=== PATIENT | female | born 1960 | race Caucasian/White ===

== ENCOUNTER → 2016-08-21 | Outpatient (REF) | payer BC | LOC: M LAB REF 16:43 | PROVIDERS: ATTEND Surgery | DX: C44.519 Basal cell carcinoma of skin of other part of trunk (principal) ==

== ENCOUNTER → 2018-09-02 | Outpatient (REF) | payer BC ==
[2018-09-02 19:40] LABS: C REACTIVE PROTEIN QUANTITATIV < 0.30 MG/DL (0.00-0.30); URIC ACID 5.3 MG/DL (2.6-6.0)
[2018-09-05 00:07] LABS: Lyme Disease IgG/IgM Antibodie <0.91 ISR (0.00-0.90); Lyme Disease IgM Ab Quantitati <0.80 index (0.00-0.79)
== END ==
LOC: M LAB REF 17:37
PROVIDERS: ATTEND Internal Medicine
DX: M25.571 Pain in right ankle and joints of right foot (principal); M25.562 Pain in left knee

== ENCOUNTER 2019-01-06 07:54 | Day surgery (SDC) | payer BC ==
[~2019-01-06] VITALS: Ht 161.3 cm; Wt 88.5 kg
[~2019-01-06 07:54] MED LIST: ACCU40TA PO; ALRE0.5S OU; ASPI81TA85 PO; CALCCAP4 PO; CETI10CH PO; ESTR625TA PO; HYDR12CA PO; MAGN400C2 PO; MOME50SP; MULTCAP PO; NS 1,000 ML IV ONE; OMEP40CA2 PO; ROSU10TA5 PO; SM P99TA PO; [UNRECOGNIZED DRUG - OTHER] PO
[2019-01-06] MEDS ORDERED: LIDOCAINE 2% INJ 100 MG/5 ML SDV (FOR ANES.) As Ordered ONE (09:08)
[2019-01-06] MEDS ORDERED: PROPOFOL 200 MG/20 ML VIAL As Ordered ONE (09:08)
--- NOTE | 2019-01-06 09:10 | ROOR ---
Patient Name: Kim Ross Procedure Date: 01/06/2019 8:54 AM Date of : 1960 Age: 58 Room: [facility] Gender: Female Note Status: Finalized Procedure: Upper Endoscopy + Biopsies Indications: Heartburn, Exclusion of Trujillo's esophagus Providers: Fredis Hutson MD Referring MD: Camila POWER MD Requesting Provider: Medicines: Monitored Anesthesia Care Complications: No immediate complications. Procedure: Pre-Anesthesia Assessment: - The heart rate, respiratory rate, oxygen saturations, blood pressure, adequacy of pulmonary ventilation, and response to care were monitored throughout the procedure. The Endoscope was introduced through the mouth, and advanced to the second part of duodenum. The upper GI endoscopy was accomplished without difficulty. The patient tolerated the procedure well. Findings: The Z-line was irregular and was found 35 cm from the incisors. Multiple biopsies were obtained with cold forceps for evaluation to rule out Trujillo's Esophagus randomly at the gastroesophageal junction. A small hiatal hernia was present. No other significant abnormalities were identified in a careful examination of the stomach. The exam of the duodenum was otherwise normal. Impression: - Z-line irregular, 35 cm from the incisors. - Small hiatal hernia. - Multiple biopsies were obtained at the gastroesophageal junction. - The examination was otherwise normal. Recommendation: - Patient has a contact number available for emergencies. The signs and symptoms of potential delayed complications were discussed with the patient. Return to normal activities tomorrow. Written discharge instructions were provided to the patient. - High fiber diet. - Discharge patient to home. - Continue present medications. - Follow an antireflux regimen. - Await pathology results. - Telephone GI clinic for pathology results in 1 week. - Check Portal Online for Path Results.([email or web address]) - Return to referring physician. - The findings and recommendations were discussed with the patient's family. Fredis Hutson MD Fredis Hutson MD 01/06/2019 9:10:05 AM Electronically signed by Fredis Hutson MD Number of Addenda: 0 Note Initiated On: 01/06/2019 8:54 AM Estimated Blood Loss: Estimated blood loss: none.
--- NOTE | 2019-01-06 09:28 | ROOR ---
Patient Name: Kim Ross Procedure Date: 01/06/2019 8:55 AM Date of : 1960 Age: 58 Room: [facility] Gender: Female Note Status: Finalized Procedure: Total Colonoscopy to Cecum Indications: Screening for colorectal malignant neoplasm Providers: Fredis Hutson MD Referring MD: Camila POWER MD Requesting Provider: Medicines: Monitored Anesthesia Care Complications: No immediate complications. Procedure: Pre-Anesthesia Assessment: - The heart rate, respiratory rate, oxygen saturations, blood pressure, adequacy of pulmonary ventilation, and response to care were monitored throughout the procedure. The Colonoscope was introduced through the anus and advanced to the cecum, identified by appendiceal orifice and ileocecal valve. The colonoscopy was performed without difficulty. The patient tolerated the procedure well. The quality of the bowel preparation was excellent. Findings: The perianal and digital rectal examinations were normal. Non-bleeding internal hemorrhoids were found during retroflexion. The hemorrhoids were small and Grade I (internal hemorrhoids that do not prolapse). Multiple small and large-mouthed diverticula were found in the recto-sigmoid colon, sigmoid colon and descending colon. The exam was otherwise without abnormality on direct and retroflexion views. Impression: - Non-bleeding internal hemorrhoids. - Diverticulosis in the recto-sigmoid colon, in the sigmoid colon and in the descending colon. - The examination was otherwise normal on direct and retroflexion views. - No specimens collected. - The exam was otherwise normal to the cecum. Recommendation: - Patient has a contact number available for emergencies. The signs and symptoms of potential delayed complications were discussed with the patient. Return to normal activities tomorrow. Written discharge instructions were provided to the patient. - High fiber diet. - Discharge patient to home. - Continue present medications. - Repeat colonoscopy in 10 years for screening purposes. - Return to referring physician. - The findings and recommendations were discussed with the patient's family. Fredis Hutson MD Fredis Hutson MD 01/06/2019 9:28:08 AM Electronically signed by Fredis Hutson MD Number of Addenda: 0 Note Initiated On: 01/06/2019 8:55 AM Estimated Blood Loss: Estimated blood loss: none.
[2019-01-06 09:53] VITALS: BP 148/80
== END 2019-01-06 09:55 | disposition home or self-care (01) ==
LOC: M OPP 07:54
PROVIDERS: ATTEND Internal Medicine Gastroenterology
DX: K64.0 First degree hemorrhoids (principal); K57.30 Diverticulosis of large intestine without perforation or abscess without bleeding; K22.8 Other specified diseases of esophagus; K44.9 Diaphragmatic hernia without obstruction or gangrene; R12 Heartburn; Z12.11 Encounter for screening for malignant neoplasm of colon

== ENCOUNTER → 2020-04-13 | Outpatient (REF) | payer BC ==
[~2020-04-13] MED LIST changes: -ASPI81TA85 PO; +ASPI81TA86 PO; -NS 1,000 ML IV ONE; -OMEP40CA2 PO; +OMEP40CA97 PO; -ROSU10TA5 PO; +ROSU10TA6 PO
[2020-04-13 15:29] LABS: HEPATITIS A ANTIBODY IGM NEGATIVE (NEGATIVE); HEPATITIS B CORE ANTIBODY IGM NEGATIVE (NEGATIVE); HEPATITIS B SURFACE ANTIGEN NEGATIVE (NEGATIVE); HEPATITIS C VIRUS ABY INDEX 0.1 INDEX (<0.8)
== END ==
LOC: M LAB REF 12:23
PROVIDERS: ATTEND Internal Medicine
DX: R94.5 Abnormal results of liver function studies (principal); K76.0 Fatty (change of) liver, not elsewhere classified

== ENCOUNTER → 2020-12-09 | Outpatient (CLI) | payer BC ==
--- NOTE | 2020-12-10 03:31 | REP ---
INDICATION: IMPINGEMENT SYNDROME. COMPARISON: None. TECHNIQUE: Internal rotation, external rotation, and Y-view of the right shoulder FINDINGS: Relatively mild cortical irregularity and spurring at the acromioclavicular joint. Glenohumeral joint is relatively age-appropriate. Subacromial space is normal. No periarticular calcifications or loose bodies are identified. Surrounding soft tissues are normal. 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 <Electronically signed by Marino Law > 12/10/20 [id number]
== END ==
LOC: M SOG 14:46
PROVIDERS: ATTEND Orthopaedic Surgery Sports Medicine
DX: M75.41 Impingement syndrome of right shoulder (principal)

== ENCOUNTER → 2020-12-30 | Outpatient (CLI) | payer BC ==
[~2020-12-30] MED LIST changes: +OMEP40CA4 PO; -OMEP40CA97 PO
--- NOTE | 2020-12-30 15:52 | REP ---
INDICATION: PAIN AND SWELLING COMPARISON: None. TECHNIQUE: AP, lateral, bilateral oblique views left wrist. FINDINGS: The carpal bones, surrounding osseous structures, soft tissues, and joint spaces are normal. There is no evidence for acute fracture or dislocation. No subcutaneous emphysema or radiodense foreign body. IMPRESSION: Normal age-appropriate left wrist series. No acute fracture or dislocation. <Electronically signed by Marino Law > 12/30/20 [id number]
== END ==
LOC: M WUC 15:27
PROVIDERS: ATTEND Internal Medicine
DX: M25.532 Pain in left wrist (principal)

== ENCOUNTER → 2021-02-03 | Outpatient (CLI) | payer BC ==
--- NOTE | 2021-02-03 14:53 | REP ---
INDICATION: RT SHOULDER PAIN, LT WRIST PAIN. COMPARISON: None. TECHNIQUE: Axial T1. Coronal fat suppressed proton density, fat suppressed T2, and T1 multi-gradient. Sagittal T2 and T2 STIR. FINDINGS: Mild linear T2 hyper signal changes are seen in the triangular fibrocartilage complex which appears to be intact. Linear hyper signal changes are seen in the scapholunate ligament. The lunatotriquetral ligament appears to be intact. There is no abnormal fluid seen in the distal radioulnar joint. The chondral surfaces appear smooth. Normal appearing low signal is seen throughout all imaged flexor and extensor tendons. No abnormal peritendinous fluid is identified. There is enlargement of the median nerve with increased T2 signal seen within it. There is no abnormal anterior bowing of the flexor retinaculum. The marrow signal is within normal limits throughout. There is no evidence of a mass or mass effect. IMPRESSION: 1. Signal changes in the scapholunate ligament as described above. Ligamentous integrity cannot be confirmed. Consider follow-up with wrist MRI arthrography if clinically relevant. 2. Evidence of median nerve enlargement with hyper signal changes as described above. This should be correlated clinically for possible median neuritis. 3. Other findings as described above. <Electronically signed by Lance Morgan > 02/03/21 [id number]
--- NOTE | 2021-02-03 16:04 | REP ---
INDICATION: RT SHOULDER PAIN, LT WRIST PAIN. COMPARISON: None. TECHNIQUE: Coronal oblique T1 and fat suppressed T2. Sagittal oblique fat suppressed T2. Axial zgjte-tiumjprf-saks and T2 FLASH. FINDINGS: There is moderate hypertrophic degenerative change seen involving the acromioclavicular joint. T2 hyper signal is seen within and on both sides of the joint. The acromion process is type 2 with a spur arising from the inferior surface at the AC joint. There is patchy and linear T2 hyper signal seen throughout the supraspinatus tendon some of which appears full-thickness. There is no susana supraspinatus musculotendinous retraction, however, there does appear to be mild supraspinatus muscle atrophy. Patchy T2 hyper signal is seen in the subscapularis and infraspinatus tendons. The biceps tendon resides within the bicipital groove. There is no glenohumeral joint effusion. There is no abnormal fluid seen in the subcoracoid recess. There is coracohumeral and coracoacromial ligamentous thickening. No gross labral signal changes are identified. IMPRESSION: 1. Supraspinatus tendinitis/tendinosis. Partial full-thickness tear cannot be ruled out. 2. Subscapularis and infraspinatus tendinitis/tendinosis which is somewhat mild. 3. AC joint DJD with ligamentous thickening consistent with the clinical diagnosis of impingement syndrome. 4. Other findings as described above. <Electronically signed by Lance Morgan > 02/03/21 2019
== END ==
LOC: M RAD 09:56
PROVIDERS: ATTEND Internal Medicine
DX: M25.511 Pain in right shoulder (principal); M25.532 Pain in left wrist; M75.82 Other shoulder lesions, left shoulder

== ENCOUNTER → 2021-06-16 | Outpatient (REF) | LOC: M LABSMTC 11:07 | PROVIDERS: ATTEND Pediatrics | DX: Z11.52 Encounter for screening for COVID-19 (principal) ==

== ENCOUNTER → 2021-08-22 | Outpatient (REF) | payer BC ==
[~2021-08-22] MED LIST changes: +GNP99TAB3 PO; -MOME50SP; +NASO50SP3; -SM P99TA PO
[2021-08-23 13:42] LABS: HEPATITIS B CORE ANTIBODY IGM NEGATIVE (NEGATIVE); HEPATITIS B SURFACE ANTIGEN NEGATIVE (NEGATIVE)
== END ==
LOC: M LAB REF 12:11
PROVIDERS: ATTEND Internal Medicine
DX: K76.0 Fatty (change of) liver, not elsewhere classified (principal); R94.5 Abnormal results of liver function studies

== ENCOUNTER → 2022-02-08 | Outpatient (CLI) | payer BC | LOC: M RAD 11:58 | PROVIDERS: ATTEND Internal Medicine | DX: M46.92 Unspecified inflammatory spondylopathy, cervical region (principal); M48.02 Spinal stenosis, cervical region ==

== ENCOUNTER → 2022-08-23 | Outpatient (REF) | payer BC ==
[2022-08-23 15:09] LABS: APPEARANCE, URINE HAZY (CLEAR); BACTERIA, URINE AUTO NEGATIVE (NEGATIVE); BILIRUBIN, URINE AUTO NEGATIVE (NEGATIVE); BLOOD, URINE BLOOD NEGATIVE (NEGATIVE); COLOR, URINE YELLOW (YELLOW); GLUCOSE, URINE (UA) AUTO NEGATIVE (NEGATIVE); KETONE, URINE AUTO NEGATIVE (NEGATIVE); LEUKOCYTE ESTERASE, URINE AUTO 2+ (NEGATIVE); MUCUS, URINE SMALL (NEGATIVE); NITRITE, URINE AUTO NEGATIVE (NEGATIVE); PROTEIN, URINE AUTO NEGATIVE (NEGATIVE); RBC, URINE AUTO 1 /HPF (0-3); SPECIFIC GRAVITY URINE AUTO 1.018 (1.002-1.035); SQUAMOUS EPITHELIAL CELL UR AU 5 /HPF (0-6); UROBILINOGEN, URINE AUTO 0.2 mg/dL (0.0-2.0); WBC, URINE AUTO 3 /HPF (0-3)
== END ==
LOC: M LAB REF 13:55
PROVIDERS: ATTEND Internal Medicine
DX: R31.9 Hematuria, unspecified (principal)

== ENCOUNTER → 2022-10-16 | Outpatient (CLI) | payer BC | LOC: M WHC 15:00 | PROVIDERS: ATTEND Internal Medicine | DX: Z12.31 Encounter for screening mammogram for malignant neoplasm of breast (principal) ==

== ENCOUNTER → 2023-10-18 | Outpatient (CLI) | payer BC | LOC: M WHC 08:56 | PROVIDERS: ATTEND Internal Medicine | DX: Z12.31 Encounter for screening mammogram for malignant neoplasm of breast (principal); M89.9 Disorder of bone, unspecified ==

== ENCOUNTER → 2024-07-30 | Outpatient (CLI) | payer BC ==
[~2024-07-30] MED LIST changes: -ROSU10TA6 PO; +ROSU10TA61 PO
== END ==
LOC: M RAD 12:46
PROVIDERS: ATTEND Internal Medicine
DX: M79.622 Pain in left upper arm (principal)

== ENCOUNTER → 2024-10-20 | Outpatient (CLI) | payer BC | LOC: M WHC 14:59 | PROVIDERS: ATTEND Internal Medicine | DX: Z12.31 Encounter for screening mammogram for malignant neoplasm of breast (principal) ==

== ENCOUNTER → 2025-02-26 | Outpatient (CLI) | payer MEDICARE ==
[~2025-02-26] MED LIST changes: +HYDR12.510 PO; -HYDR12CA PO
== END ==
LOC: M PLAIMG 10:07
PROVIDERS: ATTEND Internal Medicine
DX: G83.9 Paralytic syndrome, unspecified (principal); M81.0 Age-related osteoporosis without current pathological fracture